=== PATIENT | male | born 1965 | race African-American/Black ===

== ENCOUNTER 2016-09-24 14:39 | Inpatient (IN) | payer MEDICARE, MEDICAID ==
[~2016-09-24] VITALS: Ht 177.8 cm; Wt 79.7 kg
[2016-09-24] MEDS ORDERED: HALOPERIDOL 5 MG TABLET PO PRN (19:30)
[2016-09-24] MEDS ORDERED: ZOLPIDEM TARTRATE 10 MG TABLET PO PRN (19:30)
[2016-09-24] MEDS ORDERED: CYANOCOBALAMIN 1,000 MCG/ML VIAL IM ONE (20:00)
[2016-09-24] MEDS ORDERED: GuaiFENesin/D-METHORPHAN [SUGAR-FREE] 200-20MG/10 ML SYRUP UDCUP PO PRN (20:00)
[2016-09-24] MEDS ORDERED: LORazepam 2 MG TABLET PO PRN (20:00)
[2016-09-24] MEDS ORDERED: LOPERAMIDE HCL 2 MG CAPSULE PO PRN (20:00)
[2016-09-24] MEDS ORDERED: HydrOXYzine PAMOATE 50 MG CAPSULE PO PRN (20:00)
[2016-09-24 20:51] VITALS: BP 117/80
[2016-09-24] MEDS: THIAMINE HCL 100 MG TABLET PO SCH (21:08)
[2016-09-24] MEDS: OLANZapine 10 MG TABLET PO SCH (21:08)
[2016-09-24 21:30] VITALS: BP 126/77
[2016-09-24 22:52] VITALS: BP 118/66
[2016-09-24 23:30] VITALS: BP 118/77
[2016-09-25] VITALS (8 sets, daily range): BP systolic 11–118; BP diastolic 60–85
[2016-09-25] MEDS ORDERED: LORazepam 2 MG TABLET PO PRN (07:00)
[2016-09-25 07:58] LABS: BASOPHILS # (AUTO) 0.02 K/uL (0.00-0.20); BASOPHILS % (AUTO) 0.5 % (0.0-2.0); EOSINOPHILS # (AUTO) 0.22 K/uL (0.00-0.70); EOSINOPHILS % (AUTO) 5.83 % (1.0-6.0); HEMATOCRIT 44.2 % (41-53); HEMOGLOBIN 14.9 g/dL (13.5-17.5); LYMPHOCYTES # (AUTO) 1.4 K/uL (1.0-4.8); LYMPHOCYTES % (AUTO) 36.2 % (22.0-44.0); MEAN CORPUSCULAR HEMOGLOBIN 33.1 pg (26.0-34.0); MEAN CORPUSCULAR HGB CONC 33.6 G/dL (31.0-37.0); MEAN CORPUSCULAR VOLUME 98 fL (80-100); MONOCYTES # (AUTO) 0.5 K/uL (0.1-1.0); MONOCYTES % (AUTO) 12.4 % (2.0-9.0); NEUTROPHILS # (AUTO) 1.7 K/uL (1.8-7.7); NEUTROPHILS % (AUTO) 45.2 % (40.0-70.0); RED BLOOD CELL COUNT(AUTO) 4.49 MIL/uL (4.50-5.90); RED CELL DISTRIBUTION WIDTH 13.4 % (11.5-14.5); WHITE BLOOD COUNT (AUTO) 3.7 K/uL (4.5-11.0)
[2016-09-25 08:24] LABS: ALANINE AMINOTRANSFERASE 26 U/L (12-78); ALBUMIN 3.3 g/dL (3.4-5.0); ANION GAP 7 mmol/L (8-16); ASPARTATE AMINOTRANSFERASE 30 U/L (15-37); BILIRUBIN,TOTAL 0.5 mg/dL (0.1-1.0); CALCIUM, TOTAL 9.1 mg/dL (8.8-10.5); CARBON DIOXIDE 28 mmol/L (22-29); CHLORIDE 107 mmol/L (98-107); CHOL/HDL RATIO 2.3 (4.2-7.3); CREATININE 0.67 mg/dL (0.60-1.30); GLOMERULAR FILTR. RATE CALC > 60 mL/min (>60); SODIUM SERUM 142 mmol/L (136-145); THYROID STIMULATING HORMONE 3.95 uIU/mL (0.36-3.74); TOTAL PROTEIN, SERUM 6.3 g/dL (6.4-8.2); UREA NITROGEN, BLOOD 9 mg/dL (7-18)
[2016-09-25] MEDS: LORazepam 2 MG TABLET PO SCH ×4 (08:48→20:48)
[2016-09-25] MEDS: THIAMINE HCL 100 MG TABLET PO SCH ×2 (08:48→16:45)
[2016-09-25] MEDS: MULTIVITAMINS WITH MINERALS, THERAPEUTIC TABLET PO SCH (08:48)
[2016-09-25] MEDS: FOLIC ACID 1 MG TABLET PO SCH (08:48)
[2016-09-25] MEDS: NICOTINE 21 MG/24 HOUR PATCH TD SCH (08:49)
[2016-09-25 08:53] LABS: PLATELET COUNT (AUTO) 64 K/uL (150-450); RBC MORPHOLOGY COMMENT NORMAL RBC MORPH
[2016-09-25 09:43] LABS: HEMOGLOBIN A1C 5.3 % (4.5-6.2)
[2016-09-25] MEDS: OLANZapine 10 MG TABLET PO SCH (20:48)
[2016-09-26 01:03] VITALS: BP 114/87
[2016-09-26] MEDS: LEVOTHYROXINE SODIUM 25 MCG TABLET PO SCH (06:16)
[2016-09-26 08:28] VITALS: BP 123/66
[2016-09-26 08:31] VITALS: BP 123/66
[2016-09-26 08:32] LABS: APPEARANCE,URINE CLEAR (CLEAR); GLUCOSE, URINE (UA) NEGATIVE (NEGATIVE); KETONES,URINE NEGATIVE (NEGATIVE); LEUKOCYTE ESTERASE ,URINE NEGATIVE (NEGATIVE); OCCULT BLOOD,URINE NEGATIVE (NEGATIVE); PROTEIN,URINE NEGATIVE (NEGATIVE)
[2016-09-26 08:35] LABS: ADD UA MICROSCOPIC NO
[2016-09-26] MEDS: FOLIC ACID 1 MG TABLET PO SCH (09:50)
[2016-09-26] MEDS: THIAMINE HCL 100 MG TABLET PO SCH ×2 (09:50→16:49)
[2016-09-26] MEDS: FISH OIL/OMEGA-3 FATTY ACIDS 500 MG CAPSULE PO SCH (09:50)
[2016-09-26] MEDS: LORazepam 2 MG TABLET PO SCH ×4 (09:50→20:42)
[2016-09-26] MEDS: MULTIVITAMINS WITH MINERALS, THERAPEUTIC TABLET PO SCH (09:50)
[2016-09-26] MEDS: NICOTINE 21 MG/24 HOUR PATCH TD SCH (09:50)
[2016-09-26 16:00] VITALS: BP 112/74
[2016-09-26 16:10] VITALS: BP 112/74
[2016-09-26] MEDS: OLANZapine 10 MG TABLET PO SCH (20:42)
[2016-09-27 00:26] VITALS: BP 118/86
[2016-09-27] MEDS: LEVOTHYROXINE SODIUM 25 MCG TABLET PO SCH (06:46)
[2016-09-27] MEDS ORDERED: LORazepam 1 MG TABLET PO PRN (07:00)
[2016-09-27 08:21] VITALS: BP 124/77
[2016-09-27] MEDS: LORazepam 1 MG TABLET PO SCH ×4 (08:21→20:34)
[2016-09-27] MEDS: THIAMINE HCL 100 MG TABLET PO SCH ×2 (08:21→16:40)
[2016-09-27] MEDS: FISH OIL/OMEGA-3 FATTY ACIDS 500 MG CAPSULE PO SCH (08:21)
[2016-09-27] MEDS: NICOTINE 21 MG/24 HOUR PATCH TD SCH (08:21)
[2016-09-27] MEDS: FOLIC ACID 1 MG TABLET PO SCH (08:21)
[2016-09-27] MEDS: MULTIVITAMINS WITH MINERALS, THERAPEUTIC TABLET PO SCH (08:21)
[2016-09-27 08:59] VITALS: BP 124/77
[2016-09-27] MEDS: OLANZapine 5 MG TABLET PO SCH (09:50)
[2016-09-27 16:11] VITALS: BP 117/73
[2016-09-27] MEDS: OLANZapine 10 MG TABLET PO SCH (20:34)
[2016-09-27 21:01] VITALS: BP 117/73
[2016-09-28 00:13] VITALS: BP 116/79
[2016-09-28] MEDS: LEVOTHYROXINE SODIUM 25 MCG TABLET PO SCH (06:29)
[2016-09-28] MEDS ORDERED: LORazepam 1 MG TABLET PO PRN (07:00)
[2016-09-28 08:33] VITALS: BP 104/68
[2016-09-28] MEDS: FISH OIL/OMEGA-3 FATTY ACIDS 500 MG CAPSULE PO SCH (08:59)
[2016-09-28] MEDS: OLANZapine 5 MG TABLET PO SCH (08:59)
[2016-09-28] MEDS: THIAMINE HCL 100 MG TABLET PO SCH ×2 (08:59→17:07)
[2016-09-28] MEDS: MULTIVITAMINS WITH MINERALS, THERAPEUTIC TABLET PO SCH (08:59)
[2016-09-28] MEDS: FOLIC ACID 1 MG TABLET PO SCH (08:59)
[2016-09-28] MEDS: NICOTINE 21 MG/24 HOUR PATCH TD SCH (09:00)
[2016-09-28 16:00] VITALS: BP 122/80
[2016-09-28 16:17] VITALS: BP 122/80
[2016-09-28] MEDS: TRIHEXYPHENIDYL HCL 5 MG TABLET PO SCH (17:07)
[2016-09-28] MEDS: OLANZapine 10 MG TABLET PO SCH (20:46)
[2016-09-29] MEDS: LEVOTHYROXINE SODIUM 25 MCG TABLET PO SCH (06:28)
[2016-09-29 06:40] VITALS: BP 123/71
[2016-09-29 06:42] VITALS: BP 123/71
[2016-09-29 08:11] VITALS: BP 110/64
[2016-09-29] MEDS: OLANZapine 5 MG TABLET PO SCH (08:17)
[2016-09-29] MEDS: THIAMINE HCL 100 MG TABLET PO SCH ×2 (08:17→16:06)
[2016-09-29] MEDS: NICOTINE 21 MG/24 HOUR PATCH TD SCH (08:18)
[2016-09-29] MEDS: MULTIVITAMINS WITH MINERALS, THERAPEUTIC TABLET PO SCH (08:18)
[2016-09-29] MEDS: FOLIC ACID 1 MG TABLET PO SCH (08:18)
[2016-09-29] MEDS: FISH OIL/OMEGA-3 FATTY ACIDS 500 MG CAPSULE PO SCH (08:18)
[2016-09-29] MEDS: TRIHEXYPHENIDYL HCL 5 MG TABLET PO SCH ×3 (08:18→16:06)
[2016-09-29 16:14] VITALS: BP 119/82
[2016-09-29] MEDS: OLANZapine 10 MG TABLET PO SCH (20:05)
[2016-09-30 00:01] VITALS: BP 115/70
[2016-09-30] MEDS: LEVOTHYROXINE SODIUM 25 MCG TABLET PO SCH (06:35)
[2016-09-30] MEDS: OLANZapine 5 MG TABLET PO SCH (08:22)
[2016-09-30] MEDS: MULTIVITAMINS WITH MINERALS, THERAPEUTIC TABLET PO SCH (08:22)
[2016-09-30] MEDS: THIAMINE HCL 100 MG TABLET PO SCH ×2 (08:22→17:09)
[2016-09-30] MEDS: TRIHEXYPHENIDYL HCL 5 MG TABLET PO SCH ×3 (08:22→17:09)
[2016-09-30] MEDS: FISH OIL/OMEGA-3 FATTY ACIDS 500 MG CAPSULE PO SCH (08:22)
[2016-09-30] MEDS: FOLIC ACID 1 MG TABLET PO SCH (08:22)
[2016-09-30] MEDS: NICOTINE 21 MG/24 HOUR PATCH TD SCH (08:23)
[2016-09-30 08:26] VITALS: BP 106/76
[2016-09-30] MEDS ORDERED: OLANZapine 5 MG TABLET PO ONE (14:15)
[2016-09-30 16:14] VITALS: BP 110/60
[2016-09-30] MEDS: OLANZapine 10 MG TABLET PO SCH (20:48)
[2016-10-01 02:17] VITALS: BP 113/93
[2016-10-01] MEDS: LEVOTHYROXINE SODIUM 25 MCG TABLET PO SCH (06:21)
[2016-10-01 08:24] VITALS: BP 100/62
[2016-10-01] MEDS: OLANZapine 10 MG TABLET PO SCH ×2 (08:48→20:39)
[2016-10-01] MEDS: THIAMINE HCL 100 MG TABLET PO SCH ×2 (08:48→16:59)
[2016-10-01] MEDS: TRIHEXYPHENIDYL HCL 5 MG TABLET PO SCH ×3 (08:48→16:59)
[2016-10-01] MEDS: FISH OIL/OMEGA-3 FATTY ACIDS 500 MG CAPSULE PO SCH (08:48)
[2016-10-01] MEDS: MULTIVITAMINS WITH MINERALS, THERAPEUTIC TABLET PO SCH (08:48)
[2016-10-01] MEDS: FOLIC ACID 1 MG TABLET PO SCH (08:48)
[2016-10-01] MEDS: NICOTINE 21 MG/24 HOUR PATCH TD SCH (08:49)
[2016-10-01 16:12] VITALS: BP 110/77
[2016-10-02 00:17] VITALS: BP 134/95
[2016-10-02] MEDS: LEVOTHYROXINE SODIUM 25 MCG TABLET PO SCH (06:24)
[2016-10-02] MEDS: FOLIC ACID 1 MG TABLET PO SCH (08:14)
[2016-10-02] MEDS: OLANZapine 10 MG TABLET PO SCH ×2 (08:14→20:44)
[2016-10-02] MEDS: NICOTINE 21 MG/24 HOUR PATCH TD SCH (08:15)
[2016-10-02] MEDS: THIAMINE HCL 100 MG TABLET PO SCH ×2 (08:15→16:53)
[2016-10-02] MEDS: LORazepam 2 MG TABLET PO PRN (08:15)
[2016-10-02] MEDS: TRIHEXYPHENIDYL HCL 5 MG TABLET PO SCH ×3 (08:15→16:53)
[2016-10-02] MEDS: MULTIVITAMINS WITH MINERALS, THERAPEUTIC TABLET PO SCH (08:15)
[2016-10-02] MEDS: FISH OIL/OMEGA-3 FATTY ACIDS 500 MG CAPSULE PO SCH (08:15)
[2016-10-02 08:25] VITALS: BP 114/70
[2016-10-02 16:03] VITALS: BP 103/69
[2016-10-02] MEDS ORDERED: OLANZapine 7.5 MG TABLET PO SCH (21:00)
[2016-10-03 01:45] VITALS: BP 124/91
[2016-10-03] MEDS: LORazepam 2 MG TABLET PO PRN (01:54)
[2016-10-03] MEDS: LEVOTHYROXINE SODIUM 25 MCG TABLET PO SCH (06:57)
[2016-10-03 08:11] VITALS: BP 106/61
[2016-10-03] MEDS: MULTIVITAMINS WITH MINERALS, THERAPEUTIC TABLET PO SCH (08:31)
[2016-10-03] MEDS: OLANZapine 10 MG TABLET PO SCH ×2 (08:31→20:40)
[2016-10-03] MEDS: FISH OIL/OMEGA-3 FATTY ACIDS 500 MG CAPSULE PO SCH (08:32)
[2016-10-03] MEDS: THIAMINE HCL 100 MG TABLET PO SCH ×2 (08:32→16:38)
[2016-10-03] MEDS: FOLIC ACID 1 MG TABLET PO SCH (08:32)
[2016-10-03] MEDS: TRIHEXYPHENIDYL HCL 5 MG TABLET PO SCH ×3 (08:36→16:38)
[2016-10-03] MEDS: NICOTINE 21 MG/24 HOUR PATCH TD SCH (08:37)
[2016-10-03 16:14] VITALS: BP 102/60
[2016-10-04 01:11] VITALS: BP 105/69
[2016-10-04] MEDS: LEVOTHYROXINE SODIUM 25 MCG TABLET PO SCH (06:54)
[2016-10-04] MEDS: OLANZapine 10 MG TABLET PO SCH ×2 (08:08→20:39)
[2016-10-04] MEDS: THIAMINE HCL 100 MG TABLET PO SCH (08:08)
[2016-10-04] MEDS: MULTIVITAMINS WITH MINERALS, THERAPEUTIC TABLET PO SCH (08:08)
[2016-10-04] MEDS: FOLIC ACID 1 MG TABLET PO SCH (08:08)
[2016-10-04] MEDS: TRIHEXYPHENIDYL HCL 5 MG TABLET PO SCH ×3 (08:08→16:48)
[2016-10-04] MEDS: NICOTINE 21 MG/24 HOUR PATCH TD SCH (08:08)
[2016-10-04] MEDS: FISH OIL/OMEGA-3 FATTY ACIDS 500 MG CAPSULE PO SCH (08:08)
[2016-10-04 08:14] VITALS: BP 116/75
[2016-10-04 16:18] VITALS: BP 102/61
[2016-10-05 05:33] VITALS: BP 113/91
[2016-10-05] MEDS: LEVOTHYROXINE SODIUM 25 MCG TABLET PO SCH (06:42)
[2016-10-05] MEDS: TRIHEXYPHENIDYL HCL 5 MG TABLET PO SCH ×3 (08:05→16:37)
[2016-10-05] MEDS: NICOTINE 21 MG/24 HOUR PATCH TD SCH (08:05)
[2016-10-05] MEDS: FISH OIL/OMEGA-3 FATTY ACIDS 500 MG CAPSULE PO SCH (08:05)
[2016-10-05] MEDS: MULTIVITAMINS WITH MINERALS, THERAPEUTIC TABLET PO SCH (08:05)
[2016-10-05] MEDS: OLANZapine 10 MG TABLET PO SCH ×2 (08:05→20:43)
[2016-10-05 08:21] VITALS: BP 104/63
[2016-10-05 16:15] VITALS: BP 110/73
[2016-10-06 01:24] VITALS: BP 119/77
[2016-10-06] MEDS: LEVOTHYROXINE SODIUM 25 MCG TABLET PO SCH (06:10)
[2016-10-06 08:43] VITALS: BP 108/76
[2016-10-06] MEDS: OLANZapine 10 MG TABLET PO SCH ×2 (09:04→20:41)
[2016-10-06] MEDS: TRIHEXYPHENIDYL HCL 5 MG TABLET PO SCH ×3 (09:04→16:43)
[2016-10-06] MEDS: MULTIVITAMINS WITH MINERALS, THERAPEUTIC TABLET PO SCH (09:04)
[2016-10-06] MEDS: FISH OIL/OMEGA-3 FATTY ACIDS 500 MG CAPSULE PO SCH (09:04)
[2016-10-06] MEDS: NICOTINE 21 MG/24 HOUR PATCH TD SCH (09:04)
[2016-10-06 17:19] VITALS: BP 106/69
[2016-10-07 02:05] VITALS: BP 121/88
[2016-10-07] MEDS: LEVOTHYROXINE SODIUM 25 MCG TABLET PO SCH (06:29)
[2016-10-07 08:15] VITALS: BP 104/59
[2016-10-07] MEDS: TRIHEXYPHENIDYL HCL 5 MG TABLET PO SCH ×3 (09:47→17:10)
[2016-10-07] MEDS: FISH OIL/OMEGA-3 FATTY ACIDS 500 MG CAPSULE PO SCH (09:47)
[2016-10-07] MEDS: MULTIVITAMINS WITH MINERALS, THERAPEUTIC TABLET PO SCH (09:47)
[2016-10-07] MEDS: OLANZapine 10 MG TABLET PO SCH ×2 (09:47→20:36)
[2016-10-07] MEDS: NICOTINE 21 MG/24 HOUR PATCH TD SCH (09:48)
[2016-10-07 16:15] VITALS: BP 110/76
[2016-10-08 01:42] VITALS: BP 100/87
[2016-10-08] MEDS: LEVOTHYROXINE SODIUM 25 MCG TABLET PO SCH (06:33)
[2016-10-08] MEDS: TRIHEXYPHENIDYL HCL 5 MG TABLET PO SCH ×3 (08:14→16:33)
[2016-10-08] MEDS: FISH OIL/OMEGA-3 FATTY ACIDS 500 MG CAPSULE PO SCH (08:14)
[2016-10-08] MEDS: OLANZapine 10 MG TABLET PO SCH ×2 (08:14→20:42)
[2016-10-08] MEDS: MULTIVITAMINS WITH MINERALS, THERAPEUTIC TABLET PO SCH (08:14)
[2016-10-08] MEDS: NICOTINE 21 MG/24 HOUR PATCH TD SCH (08:15)
[2016-10-08 08:18] VITALS: BP 105/70
[2016-10-08 16:35] VITALS: BP 108/74
[2016-10-09 04:17] VITALS: BP 112/92
[2016-10-09] MEDS: LEVOTHYROXINE SODIUM 25 MCG TABLET PO SCH (06:26)
[2016-10-09] MEDS: OLANZapine 10 MG TABLET PO SCH ×2 (08:21→20:45)
[2016-10-09] MEDS: TRIHEXYPHENIDYL HCL 5 MG TABLET PO SCH ×3 (08:21→16:43)
[2016-10-09] MEDS: FISH OIL/OMEGA-3 FATTY ACIDS 500 MG CAPSULE PO SCH (08:21)
[2016-10-09] MEDS: MULTIVITAMINS WITH MINERALS, THERAPEUTIC TABLET PO SCH (08:21)
[2016-10-09] MEDS: NICOTINE 21 MG/24 HOUR PATCH TD SCH (08:21)
[2016-10-09 09:51] VITALS: BP 117/64
[2016-10-09 16:24] VITALS: BP 102/65
[2016-10-10 02:03] VITALS: BP 111/76
[2016-10-10] MEDS: LEVOTHYROXINE SODIUM 25 MCG TABLET PO SCH (06:04)
[2016-10-10] MEDS: TRIHEXYPHENIDYL HCL 5 MG TABLET PO SCH ×3 (08:23→16:38)
[2016-10-10] MEDS: NICOTINE 21 MG/24 HOUR PATCH TD SCH (08:23)
[2016-10-10] MEDS: MULTIVITAMINS WITH MINERALS, THERAPEUTIC TABLET PO SCH (08:23)
[2016-10-10] MEDS: OLANZapine 10 MG TABLET PO SCH (08:23)
[2016-10-10] MEDS: FISH OIL/OMEGA-3 FATTY ACIDS 500 MG CAPSULE PO SCH (08:23)
[2016-10-10 08:43] VITALS: BP 107/71
[2016-10-10] MEDS ORDERED: TRIH5TAB2 PO (10:08)
[2016-10-10] MEDS ORDERED: LEVO25TA9 PO (10:08)
[2016-10-10] MEDS ORDERED: OLAN10TA3 PO ×2 (10:08)
[2016-10-10 16:13] VITALS: BP 108/65
== END 2016-10-10 18:30 | disposition home or self-care (01) | DRG 885 ==
LOC: B2X 19:26
DX: F20.0 Paranoid schizophrenia (principal); E46 Unspecified protein-calorie malnutrition; J44.9 Chronic obstructive pulmonary disease, unspecified; E78.5 Hyperlipidemia, unspecified; F17.200 Nicotine dependence, unspecified, uncomplicated; E03.9 Hypothyroidism, unspecified; F10.229 Alcohol dependence with intoxication, unspecified; K59.00 Constipation, unspecified; G47.00 Insomnia, unspecified; R45.87 Impulsiveness; G24.01 Drug induced subacute dyskinesia; Z71.41 Alcohol abuse counseling and surveillance of alcoholic; Z91.19 Patient's noncompliance with other medical treatment and regimen; Z68.25 Body mass index [BMI] 25.0-25.9, adult; Z79.899 Other long term (current) drug therapy; Z56.0 Unemployment, unspecified; Z71.6 Tobacco abuse counseling
CPT/HCPCS: 80307; 83036; 84439; 84443; J3420